=== PATIENT | female | born 1970 | race Caucasian/White ===

== ENCOUNTER 2016-07-18 10:21 | Day surgery (SDC) | payer OTHER ==
[~2016-07-18] VITALS: Ht 167.6 cm; Wt 77.1 kg
[2016-07-18] MEDS ORDERED: CEFAZOLIN 1 GM/50 ML (PMX) 50 ML IVPB ONE (12:16)
[2016-07-18] MEDS ORDERED: LIDOCAINE 2% (SDV) 5 ML INJ ONE (12:22)
[2016-07-18] MEDS ORDERED: PROPOFOL 40 ML ONE (12:22)
[2016-07-18 12:30] VITALS: BP 155/79; PULSE 102; RESP 24
[2016-07-18 13:07] VITALS: BP 103/63; PULSE 96; RESP 24
[2016-07-18 13:20] VITALS: BP 115/68; PULSE 100; RESP 20
[2016-07-18 13:35] VITALS: BP 110/66; PULSE 98; RESP 20
[2016-07-18 13:45] VITALS: PULSE 89
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
== END 2016-07-18 13:49 | disposition home or self-care (01) ==
LOC: GIL 10:21
PROVIDERS: ATTEND Internal Medicine Gastroenterology
DX: R13.10 Dysphagia, unspecified (principal); F20.9 Schizophrenia, unspecified
CPT/HCPCS: 43246; J0690